=== PATIENT | male | born 1985 | race Caucasian/White ===

== ENCOUNTER 2019-02-24 10:33 | Emergency (ER) | payer MEDICAID ==
[2019-02-24] MEDS ORDERED: SERT-173 PO (10:39)
[2019-02-24] MEDS ORDERED: DIPHTH/TETANUS/ACEL. PERTUSSIS IM ONLY ONE (10:45)
[2019-02-24] MEDS ORDERED: PENICILLIN G BENZATHIN IM SUSP IM ONLY ONE (10:45)
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
--- NOTE | 2019-02-24 11:46 | RADIOLOGY IMAGING REPORT ---
FACILITY: [facility] PATIENT NAME: George Armijo : 1985 MR: [id number] V: [id number] EXAM DATE: ORDERING PHYSICIAN: YE AUSTIN TECHNOLOGIST: Location: [facility] - [place] Patient: George Armijo : 1985 Visit/Account:[id number] Date of Sevice: 02/24/2019 ELBOW 2 VIEW RIGHT Indication: swelling foreign body ro Comparison: None. Findings: The distal humerus, proximal radius, and proximal ulna are intact. Anterior posterior fat p ads are normal. There is a large amount of soft tissue swelling adjacent to the medial epicondyle. IMPRESSION: 1. No evidence of fracture or radiopaque foreign body. 2. Large amount of soft tissue swelling adjacent to the medial epicondyle. Report Dictated By: Stan Pastrana at 02/24/2019 11:40 AM Report E-Signed By: Stan Pastrana at 02/24/2019 11:41 AM WSN:[id number]
[2019-02-24 11:51] VITALS: BP 110/85
[2019-02-24] MEDS ORDERED: CLIN300C99 PO (11:51)
[2019-02-25] MEDS ORDERED: SULF-198 PO (13:27)
== END 2019-02-24 12:00 | disposition home or self-care (01) ==
LOC: ER 10:56
DX: L03.113 Cellulitis of right upper limb (principal)
CPT/HCPCS: 73070; 90471; 90715; 96372; 99284; J0561

== ENCOUNTER 2019-02-25 12:35 | Emergency (ER) | payer MEDICAID ==
[~2019-02-25 12:35] MED LIST: CLIN300C99 PO; SERT-173 PO
[2019-02-25 12:38] VITALS: BP 108/78
[2019-02-25] MEDS ORDERED: TRIMETH/SULFA DS 160-800MG TAB PO ONE (12:45)
[2019-02-25] MEDS ORDERED: cefTRIAXone 2 GM VIAL IVP ONE (12:45)
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
[2019-02-25 13:19] LABS: PLATELET COUNT, AUTOMATED 193 K/uL (150-450)
[2019-02-25] MEDS ORDERED: SULF-198 PO (13:27)
== END 2019-02-25 13:30 | disposition home or self-care (01) ==
LOC: ER 12:39
DX: L03.113 Cellulitis of right upper limb (principal)
CPT/HCPCS: 85025; 96374; 99283; J0696; 82040; 82247; 82310; 82374; 82435; 82565; 82947; 84075; 84132; 84155; 84295; 84450; 84460; 84520